=== PATIENT | female | born 1965 | race Caucasian/White ===

== ENCOUNTER 2019-07-03 09:35 | Day surgery (SDC) | payer OTHER ==
[~2019-07-03] VITALS: Ht 165.1 cm; Wt 65.0 kg
[2019-07-03] MEDS ORDERED: BUPR150ER (09:58)
[2019-07-03] MEDS ORDERED: Prozac20 MG (09:58)
[2019-07-03] MEDS ORDERED: LETR2.5 (09:59)
[2019-07-03] MEDS ORDERED: DOCU100 (09:59)
[2019-07-03] MEDS ORDERED: THERA-D2000 UNIT (09:59)
[2019-07-03] MEDS ORDERED: CALCIUM + D3 E1 EACH (09:59)
[2019-07-03] MEDS ORDERED: ZOLEDRONIC ACID4 MG (10:00)
[2019-07-03] MEDS ORDERED: CLON.5 (10:00)
[2019-07-03] MEDS ORDERED: ALBU90OI (10:00)
== END 2019-07-03 14:03 | disposition home or self-care (01) ==
LOC: ORSCSDS 09:35
PROVIDERS: Internal Medicine Gastroenterology
PROC: 0D757ZZ Dilation of Esophagus, Via Natural or Artificial Opening (ICD-10-PCS; principal; 2019-07-03 10:45)
PROC: 0DB58ZX Excision of Esophagus, Via Natural or Artificial Opening Endoscopic, Diagnostic (ICD-10-PCS; principal; 2019-07-03 10:45)
DX: R13.14 Dysphagia, pharyngoesophageal phase (principal); K21.9 Gastro-esophageal reflux disease without esophagitis; Z79.899 Other long term (current) drug therapy
CPT/HCPCS: 87081; 88305; J2704; J7120

== ENCOUNTER → 2019-08-02 | Outpatient (CLI) | payer OTHER ==
[~2019-08-02] MED LIST: ALBU90OI; BUPR150ER; CALCIUM + D3 E1 EACH; CLON.5; DOCU100; LETR2.5; Prozac20 MG; THERA-D2000 UNIT; ZOLEDRONIC ACID4 MG
[2019-08-03 14:03] LABS: Stool Occult Bld Immuno 1 Negative (NEGATIVE); Stool Occult Bld Immuno 2 Negative (NEGATIVE)
== END | disposition home or self-care (01) ==
LOC: LAB EV 09:00
PROVIDERS: Internal Medicine Gastroenterology
DX: Z83.71 Family history of colonic polyps (principal)
CPT/HCPCS: 82274

== ENCOUNTER 2020-06-02 14:58 | Emergency (ER) | payer OTHER ==
[~2020-06-02] VITALS: Ht 165.1 cm; Wt 65.8 kg
[~2020-06-02 14:58] MED LIST changes: -ALBU90OI; -BUPR150ER; -CALCIUM + D3 E1 EACH; -CLON.5; -DOCU100; +IBUP800 PO; -LETR2.5; +LIDO5TO TOP; +Percocet 7.5-31 EACH PO; -Prozac20 MG; -THERA-D2000 UNIT; -ZOLEDRONIC ACID4 MG
[2020-06-02] MEDS ORDERED: Prozac40 MG PO (15:29)
[2020-06-02] MEDS ORDERED: BUPROPION XL150 M1 PO (15:29)
[2020-06-02] MEDS ORDERED: LETR2.5 PO (15:30)
[2020-06-02] MEDS ORDERED: ALBU90OI INH (15:31)
[2020-06-02] MEDS ORDERED: CALCIUM CARBON650 MG PO (15:35)
[2020-06-02] MEDS ORDERED: DOCU100 PO (15:36)
[2020-06-02] MEDS ORDERED: THERA-D2000 UNIT PO (15:36)
[2020-06-02] MEDS ORDERED: ZOLEDRONIC ACID4 MG IV (15:36)
[2020-06-02] MEDS ORDERED: FAMO20 PO (15:37)
[2020-06-02] MEDS ORDERED: MELA3 PO (15:38)
[2020-06-02] MEDS ORDERED: CLON.5 PO (15:40)
[2020-06-02] MEDS ORDERED: ACET325 PO (15:41)
[2020-06-02] MEDS ORDERED: IBUP400 PO (15:41)
[2020-06-02] MEDS ORDERED: CHLO4 PO (15:42)
[2020-06-02] MEDS ORDERED: Suphedrine PE10 MG PO (15:42)
[2020-06-02] MEDS ORDERED: TUMS500 MG PO (15:43)
[2020-06-02] MEDS ORDERED: BICARSIM FORTE125 MG PO (15:43)
[2020-06-02 15:44] LABS: BASOPHILS ABSOLUTE AUTO 0.03 K/mm3 (0.00-0.23); BASOPHILS PERCENT AUTO 1 % (0-2); EOSINOPHILS PERCENT AUTO 5 % (0-6); Hematocrit 41.6 % (33.0-51.0); Hemoglobin 13.4 g/dL (11.5-16.0); IMMATURE GRAN ABSOLUTE AUTO 0.01 K/mm3 (0.00-0.10); IMMATURE GRAN PERCENT AUTO 0 % (0-1); LYMPHOCYTES ABSOLUTE AUTO 1.68 K/mm3 (0.84-5.20); LYMPHOCYTES PERCENT AUTO 30 % (21-46); MONOCYTES ABSOLUTE AUTO 0.54 K/mm3 (0.16-1.47); MONOCYTES PERCENT AUTO 10 % (4-13); Mean Corpuscular HGB 29.9 pg (26.0-34.0); Mean Corpuscular HGB Conc 32.2 g/dL (31.5-36.5); Mean Corpuscular Volume 93 fL (80-100); Mean Platelet Volume 11.2 fL (9.1-12.4); NEUTROPHILS ABSOLUTE AUTO 3.02 K/mm3 (1.96-9.15); NEUTROPHILS PERCENT AUTO 54 % (41-73); Platelet Count 215 K/mm3 (150-400); RDW Coefficient Variation 11.8 % (11.7-14.2); Red Blood Cell Count 4.48 M/mm3 (3.80-5.20); White Blood Cell Count 5.58 K/mm3 (4.00-11.30)
[2020-06-02] MEDS ORDERED: FLONASE ALLERG9.9 ML (15:44)
[2020-06-02] MEDS ORDERED: EXTRA PAIN REL1 EAC2 PO (15:51)
[2020-06-02 16:02] LABS: Alanine Aminotransfer (ALT/SGP 23 U/L (12-78); Albumin, Blood 3.5 g/dL (3.4-5.0); Albumin/Globulin Ratio 0.9 (0.8-1.8); Alk Phos 44 U/L (50-136); Anion Gap 7 mmol/L (6-16); Aspartate Aminotrans (AST/SGOT 30 U/L (12-37); Bilirubin, Total 0.3 mg/dL (0.1-1.0); Blood Urea Nitrogen 17 mg/dL (8-24); CO2, Blood 25 mmol/L (21-32); Calcium, Blood 8.7 mg/dL (8.5-10.1); Chloride, Blood 107 mmol/L (98-108); Creatinine, Blood 0.85 mg/dL (0.40-1.00); Globulin, Blood 3.7 g/dL (2.2-4.0); Glomerular Filtration Rate >60 (60-); Glucose, Blood 80 mg/dL (70-99); Potassium, Blood 4.4 mmol/L (3.5-5.5); Sodium, Blood 139 mmol/L (136-145); Total Protein, Blood 7.2 g/dL (6.4-8.2); Troponin I 0.017 ng/mL (0.000-0.040)
== END 2020-06-02 17:09 | disposition home or self-care (01) ==
LOC: ER 14:58
PROVIDERS: Physician Assistant
DX: R07.9 Chest pain, unspecified (principal); Z79.82 Long term (current) use of aspirin; Z79.899 Other long term (current) drug therapy
CPT/HCPCS: 36415; 71260; 80053; 83690; 84484; 85025; 93005; 93010; 99285-25; Q9967

== ENCOUNTER → 2024-03-21 | Outpatient (CLI) | payer OTHER ==
[~2024-03-21] MED LIST changes: +ACET325 PO; +ALBU90OI INH; +BICARSIM FORTE125 MG PO; +BUPROPION XL150 M1 PO; +CALCIUM CARBON650 MG PO; +CHLO4 PO; +CLON.5 PO; +DOCU100 PO; +EXTRA PAIN REL1 EAC2 PO; +FAMO20 PO; +FLONASE ALLERG9.9 ML; +IBUP400 PO; +LETR2.5 PO; +MELA3 PO; +Prozac40 MG PO; +Suphedrine PE10 MG PO; +THERA-D2000 UNIT PO; +TUMS500 MG PO; +ZOLEDRONIC ACID4 MG IV
[2024-03-21 11:10] LABS: BASOPHILS ABSOLUTE AUTO 0.05 K/mm3 (0.00-0.23); BASOPHILS PERCENT AUTO 1 % (0-2); EOSINOPHILS ABSOLUTE AUTO 0.25 K/mm3 (0.00-0.68); EOSINOPHILS PERCENT AUTO 5 % (0-6); Hematocrit 41.1 % (33.0-51.0); Hemoglobin 13.7 g/dL (11.5-16.0); IMMATURE GRAN ABSOLUTE AUTO 0.01 K/mm3 (0.00-0.10); IMMATURE GRAN PERCENT AUTO 0 % (0-1); LYMPHOCYTES ABSOLUTE AUTO 1.55 K/mm3 (0.84-5.20); LYMPHOCYTES PERCENT AUTO 32 % (21-46); MONOCYTES PERCENT AUTO 10 % (4-13); Mean Corpuscular HGB 29.9 pg (26.0-34.0); Mean Corpuscular HGB Conc 33.3 g/dL (31.5-36.5); Mean Corpuscular Volume 90 fL (80-100); Mean Platelet Volume 9.9 fL (9.1-12.4); NEUTROPHILS ABSOLUTE AUTO 2.55 K/mm3 (1.96-9.15); NEUTROPHILS PERCENT AUTO 52 % (41-73); Platelet Count 236 K/mm3 (150-400); RDW Coefficient Variation 11.9 % (11.7-14.2); RDW Standard Deviation 38.7 fL (35.1-46.3); Red Blood Cell Count 4.58 M/mm3 (3.80-5.20); White Blood Cell Count 4.91 K/mm3 (4.00-11.30)
[2024-03-21 11:20] LABS: Albumin, Blood 3.6 g/dL (3.4-5.0); Bilirubin, Total 0.4 mg/dL (0.1-1.0); Bun/Creatinine Ratio 15.8 (12.0-20.0); Calcium, Blood 9.2 mg/dL (8.5-10.1); Creatinine, Blood 1.01 mg/dL (0.40-1.00); Globulin, Blood 3.7 g/dL (2.2-4.0); Potassium, Blood 4.4 mmol/L (3.5-5.5); Total Protein, Blood 7.3 g/dL (6.4-8.2)
== END ==
LOC: LAB SHORT 11:04 → LAB 11:04
PROVIDERS: Physician Assistant
DX: R10.9 Unspecified abdominal pain (principal)
CPT/HCPCS: 80053; 83690; 85025